=== PATIENT | female | born 1955 | race Caucasian/White ===

== ENCOUNTER → 2017-01-20 | Outpatient (CLI) | payer BC, OTHER ==
[~2017-01-20] VITALS: Ht 162.6 cm; Wt 116.1 kg
[~2017-01-20] MED LIST: ACET-1311 PO; ACET-24 PO; BIOT5000 PO; CLB200 PO; LISI-729 PO; LVNIS40 SQ; MELO7.5T5 PO; MRPSR15 PO; ONDA-170 PO; RXC5 PO; SENN-61 PO; TRAM-10 PO; VITAMIN B 12 PO
[2017-01-20 14:21] VITALS: Ht 162.6 cm; Wt 116.1 kg
--- NOTE | 2017-01-20 14:56 | PAT Medication Instructions ---
Service Date Jan 20, 2017. Current Home Medication List Acetaminophen (Tylenol), 975 MG PO BID PRN for RN Biotin (Biotin/Maximum Strength), 10,000 MCG PO QAM Lisinopril (Zestril), 5 MG PO QAM Meloxicam (Mobic), 15 MG PO QAM Tramadol (Ultram), 150 MG PO Q4H PRN for Pain [Vitamin B 12], 1 TAB PO QAM Medication Instructions For Your Scheduled Surgery - Check with surgeon for instructions: Meloxicam (Mobic), 15 MG PO QAM - Hold the following medications 2 weeks prior to surgery: Biotin (Biotin/Maximum Strength), 10,000 MCG PO QAM - Hold the following medications the morning of surgery: Lisinopril (Zestril), 5 MG PO QAM [Vitamin B 12], 1 TAB PO QAM - Take the following medications the morning of surgery with a sip of water: Tramadol (Ultram), 150 MG PO Q4H PRN for Pain (okay to take up to 4 hours prior to surgery if needed) Acetaminophen (Tylenol), 975 MG PO BID PRN for RN (okay to take up to 4 hours prior to surgery if needed) - Take the following medications as scheduled the night before surgery: Tramadol (Ultram), 150 MG PO Q4H PRN for Pain (if needed) Acetaminophen (Tylenol), 975 MG PO BID PRN for RN (if needed) If you have any questions please call us at [phone] or [phone] or [phone]
--- NOTE | 2017-01-20 15:37 | DIAGNOSTIC IMAGING REPORT ---
CHEST PREADMISSION(PA/LAT) CLINICAL HISTORY: 61 years-old Female presenting with preoperative assessment. TECHNIQUE: Portable upright AP view of the chest was obtained. COMPARISON: None. FINDINGS: Cardiomediastinal silhouette normal. Lungs and pleural spaces clear. Osseous structures normal. Cholecystectomy clips noted. IMPRESSION: 1. No acute cardiopulmonary disease. Electronically signed by: Jamie Quintanilla M.D. 01/20/2017 3:36 PM Dictated Date/Time: 01/20/2017 3:35 PM
[2017-01-20 15:57] LABS: BASO % 0.3 %; BASO ABS # 0.02 K/uL (0-0.2); EOS % 3.6 %; EOS ABS # 0.23 K/uL (0-0.5); IG# 0.01 K/uL (0.00-0.02); LYMPH % 28.9 %; LYMPH ABS # 1.83 K/uL (1.2-3.4); MEAN CELL VOLUME 92.1 fL (80-100); MEAN CORPUSCULAR HEMOGLOBIN 30.7 pg (25-34); MEAN CORPUSCULAR HGB CONC 33.3 g/dl (32-36); MEAN PLATELET VOLUME 11.9 fL (7.4-10.4); MONO % 6.2 %; MONO ABS # 0.39 K/uL (0.11-0.59); NEUT % 60.8 %; NEUT ABS # 3.85 K/uL (1.4-6.5); PLATELET COUNT 183 K/uL (130-400); RED CELL DISTRIBUTION WIDTH CV 12.7 % (11.5-14.5); RED CELL DISTRIBUTION WIDTH SD 42.9 fL (36.4-46.3); WHITE BLOOD COUNT 6.33 K/uL (4.8-10.8)
[2017-01-20 16:05] LABS: CREATININE 0.61 mg/dl (0.60-1.20); POTASSIUM 4.4 mmol/L (3.5-5.1)
[2017-01-20 16:11] LABS: INR 0.9 (0.9-1.1); PTT PATIENT 26.6 SECONDS (21.0-31.0)
== END | disposition home or self-care (01) ==
LOC: C.LAB 08:00 → EDSTATUS 02-11 08:28
PROVIDERS: ATTEND Orthopaedic Surgery
DX: Z01.810 Encounter for preprocedural cardiovascular examination (principal); Z01.811 Encounter for preprocedural respiratory examination; Z01.812 Encounter for preprocedural laboratory examination; M17.0 Bilateral primary osteoarthritis of knee; I49.1 Atrial premature depolarization

== ENCOUNTER → 2017-03-24 | Outpatient (CLI) | payer OTHER ==
[~2017-03-24] MED LIST changes: -ACET-24 PO; -CLB200 PO; -LVNIS40 SQ; -MRPSR15 PO; -ONDA-170 PO; -RXC5 PO; -SENN-61 PO
[2017-03-24 16:48] LABS: BASO % 0.2 %; BASO ABS # 0.01 K/uL (0-0.2); EOS % 4.9 %; EOS ABS # 0.26 K/uL (0-0.5); HEMATOCRIT 40.6 % (37-47); HEMOGLOBIN 13.8 g/dL (12.0-16.0); IG# 0.01 K/uL (0.00-0.02); LYMPH % 38.3 %; LYMPH ABS # 2.04 K/uL (1.2-3.4); MEAN CELL VOLUME 91.9 fL (80-100); MEAN CORPUSCULAR HEMOGLOBIN 31.2 pg (25-34); MEAN PLATELET VOLUME 11.8 fL (7.4-10.4); MONO % 7.5 %; NEUT % 48.9 %; NEUT ABS # 2.61 K/uL (1.4-6.5); PLATELET COUNT 182 K/uL (130-400); RED CELL DISTRIBUTION WIDTH CV 12.7 % (11.5-14.5); RED CELL DISTRIBUTION WIDTH SD 42.9 fL (36.4-46.3); WHITE BLOOD COUNT 5.33 K/uL (4.8-10.8)
[2017-03-24 17:15] LABS: BLOOD UREA NITROGEN 20 mg/dl (7-18); CALCIUM 8.9 mg/dl (8.5-10.1); CARBON DIOXIDE 29 mmol/L (21-32); CREATININE 0.59 mg/dl (0.60-1.20); GLUCOSE 86 mg/dl (70-99); POTASSIUM 3.8 mmol/L (3.5-5.1); SODIUM 139 mmol/L (136-145)
[2017-03-25 07:09] LABS: HEMOGLOBIN A1C 5.1 % (4.5-5.6)
== END | disposition home or self-care (01) ==
LOC: C.LAB 15:19
PROVIDERS: ATTEND Orthopaedic Surgery
DX: M25.561 Pain in right knee (principal)

== ENCOUNTER 2017-04-15 06:37 | Inpatient (IN) | payer OTHER ==
[2017-04-08 10:11] VITALS: BMI 46.0
[~2017-04-15] VITALS: Ht 160 cm; Wt 118.2 kg
[2017-04-15] VITALS (8 sets, daily range): BP systolic 108–208; BP diastolic 66–158; PULSE 75–105; TEMP 36.5–37; O2SAT 94–100; Ht 160 cm; Wt 118.2 kg
[2017-04-15] MEDS: TRANEXAMIC ACID INJ 1,000 MG in SYRINGE 0 ML IV SCH ×2 (06:30→07:55)
[~2017-04-15 06:37] MED LIST changes: +ACETAMINOPHEN 500 MG TAB PO SCH; +CLINDAMYCIN 600 MG/54 ML D5W 54 ML IV SCH; +CeleBREX 200 MG CAP PO SCH; +DEXAMETHASONE 4 MG TAB PO SCH; +FAMOTIDINE 20 MG TAB PO SCH; +GABAPENTIN 300 MG CAP PO SCH; +LACTATED RINGER'S 1000ML 1,000 ML IV SCH; +LACTATED RINGER'S 1000ML 500 ML IV SCH; +METOCLOPRAMIDE HCL 10 MG TAB PO SCH; +ROPIVACAINE 5MG/ML 30 ML 150 MG, BUPIVACAINE 0.5% MPF INJ 30 ML, EpINEphrine HCL INJ 0.... INFIL SCH; -VITAMIN B 12 PO
[2017-04-15] MEDS ORDERED: BUPIVACAINE 0.5 % 5 MG/1 ML PF 10ML VIAL ONE (06:39)
[2017-04-15] MEDS ORDERED: BUPIVACAINE 0.25% 30 ML VIAL ONE (06:39)
[2017-04-15] MEDS ORDERED: POVIDONE-IODINE OP SOLN 30 ML BTL ONE (06:59)
[2017-04-15] MEDS ORDERED: ORTHO JOINT ANESTHETIC ONE (06:59)
[2017-04-15] MEDS ORDERED: BACITRACIN 50000 UNIT VIAL ONE (06:59)
--- NOTE | 2017-04-15 07:03 | History & Physical Bridge Note ---
H&P Re-Evaluation Bridge Note: I have examined the patient, reviewed the History & Physical and in the interval since the performance of the History & Physical I have noted the following changes of clinical significance: No changes noted
[2017-04-15] MEDS ORDERED: MIDAZOLAM HCL 1 MG/ML 2ML VIAL ONE (07:18)
--- NOTE | 2017-04-15 07:28 | History and Physical ---
History & Physical Date Apr 15, 2017. Chief Complaint Patient presents a 59-year-old white female with severe end-stage DJD bilateral knees for bilateral total knee arthroplasty postoperative pain management DVT prophylaxis patient's failed CONSERVATIVE management including physical therapy anti-inflammatories relative rest History of Present Illness The patient is a 61 year old female with complaints of severe end-stage Tri- Chlor milligrams degenerative joint disease failing attempts at conservative management including physical therapy anti-inflammatories relative rest activity modification viscus supplementation x-rays revealed recurrence of end- stage Tri-Chlor metal degenerative joint disease with subchondral sclerosis osteophytes marginal osteophytes bone the bone changes Additional History Hepatic Disease: No Endocrine Disorder: No Kidney Disease: No Hypertension: Yes Heart Disease: No Bleeding Tendencies: No Infectious Diseases: No Allergies Coded Allergies: Erythromycin (Verified Allergy, Intermediate, HIVES, 04/10/17) Minocycline (Verified Allergy, Intermediate, HIVES, 04/10/17) Penicillins (Verified Allergy, Intermediate, HIVES, 04/10/17) Adhesives (Verified Allergy, Unknown, ADHESIVE UNDER EKG ELECTRODES-RASH, WELTS, 04/08/17) Cortisone (Verified Allergy, Unknown, TACHYCARDIA,ELEVATED BP, 04/08/17) Dextromethorphan (Verified Allergy, Unknown, DECREASED HEART RATE,VERY SEDATED, 04/08/17) Diphenhydramine (Verified Allergy, Unknown, DECREASED HEART RATE,VERY SEDATED, 04/08/17) Doxylamine (Verified Allergy, Unknown, DECREASED HEART RATE,VERY SEDATED, 04/08/17) Pseudoephedrine (Verified Allergy, Unknown, DECREASED HEART RATE,VERY SEDATED, 04/08/17) Home Medications Scheduled Biotin (Biotin/Maximum Strength), 10,000 MCG PO QAM Lisinopril (Zestril), 5 MG PO QAM Meloxicam (Mobic), 15 MG PO QAM Scheduled PRN Acetaminophen (Tylenol), 975 MG PO BID PRN for RN Tramadol (Ultram), 150 MG PO Q4H PRN for Pain Physical Examination Skin: warm/dry, no rash ENT: normal ENT inspection, pharynx normal Head: normocephalic, atraumatic Neck: supple, no adenopathy, trachea midline Respiratory/Chest: lungs clear, normal breath sounds, no respiratory distress Cardiovascular: regular rate, rhythm, no edema, no murmur Abdomen / GI: normal bowel sounds, non tender Back: normal inspection Extremities: + pertinent finding (severe end-stage DJD bilateral knees) Diagnosis Patient presents with severe end-stage tricompartmental degenerative joint disease bilateral knees for bilateral total knee arthroplasty patient weighs 264 BMI of 48 Plan of Treatment Bilateral total knee arthroplasty postoperative pain management DVT prophylaxis and box is necessary
[2017-04-15] MEDS ORDERED: KETOROLAC TROMETHAMINE 30 MG/ML VIAL IV. PRN (07:45)
[2017-04-15] MEDS ORDERED: ONDANSETRON INJ 2 MG/ML 2 ML VIAL IV PRN (07:45)
[2017-04-15] MEDS ORDERED: PHENYLEPHRINE 100MCG/ML 5ML SYR IV PRN (07:45)
[2017-04-15] MEDS ORDERED: HYDROmorphone INJ 2 MG/ML SYR/VIAL IV PRN (07:45)
[2017-04-15] MEDS ORDERED: ATROPINE SULFATE 0.1 MG/ML 5ML SYR IV PRN (07:45)
[2017-04-15] MEDS ORDERED: FENTANYL CITRATE INJ 50 MCG/1 ML 2 ML VIAL ONE (08:25)
[2017-04-15] MEDS ORDERED: KETAMINE HCL INJ 50 MG/ML 10 ML VIAL ONE (08:42)
[2017-04-15] MEDS ORDERED: PROPOFOL IV EMULSION 10 MG/ML 20 ML VIAL IV ONE ×2 (09:08→09:25)
[2017-04-15] MEDS ORDERED: PHENYLEPHRINE 100MCG/ML 5ML SYR ONE (09:12)
[2017-04-15] MEDS ORDERED: EpHEDrine SULFATE 50MG/5ML SYR ONE (09:37)
--- NOTE | 2017-04-15 10:21 | [facility] Post Operative Brief Note ---
Immediate Operative Summary Operative Date Apr 15, 2017. Pre-Operative Diagnosis Severe end-stage DJD bilateral knees Post-Operative Diagnosis Severe end-stage DJD bilateral knees Procedure(s) Performed Bilateral total knee arthroplasty doesn't [employer] journey to patient-matched total knee arthroplasty Surgeon Reinaldo System Software Developer Surgeon(s) yanet Estimated Blood Loss 5 mL right 5 mL left Findings Consistent with Post-Op Diagnosis Specimens bone and cartilage Complication(s) none Disposition Disposition: Recovery Room / PACU
--- NOTE | 2017-04-15 10:22 | [facility] Operative Report ---
Operative Report Operative Date Apr 15, 2017. Pre-Operative Diagnosis Severe end-stage DJD bilateral knees Post-Operative Diagnosis Severe end-stage DJD bilateral knees Procedure(s) Performed Bilateral total knee arthroplasty doesn't [employer] journey to patient-matched total knee arthroplasty utilizing right knee size 5 femur 4 tibia 12 spacer 32 patella with a 14 x 100 mm stem left 5 femur 4 tibia 11 Philomena 32 oval patella Surgeon Reinaldo [employer] Home Park Manager Surgeon(s) yanet Estimated Blood Loss 5 mL right 5 mL left Findings patient presents with severe end-stage DJD bilateral knees large muscle con Specimens bone and cartilage Complication(s) none Disposition Recovery Room / PACU Indications Patient presents severe end-stage DJD bilateral knees with the subcutaneous condyle sclerosus marginal osteophytes [id number] changes varus alignment patient presents for total knee arthritis after failing attempts at conservative management including physical therapy viscus supplementation injections anti-inflammatories relative rest activity modification Description of Procedure After proper prepping and draping of the bilateral lower extremities, an anterior midline incision was made over the region of the extensor extensor mechanism of the left knee. After meticulous hemostasis was obtained and maintained in subcutaneous tissues a medial parapatellar incision was made The patella was subluxed lateralward the medial lateral gutter were cleaned from any hypertrophic synovitis and scar tissue of the distal femoral block was placed and the distal femoral osteotomy cut was made subsequently the chamfers anterior and posterior osteotomy cuts were made utilizing the 4-in-1 block the tibia was subsequently subluxed anteriorward medial and ateral meniscal remnants were excised in their entirety remnants of the anterior and posterior cruciate ligaments were excised in their entirety excellent exposure of the proximal tibia was obtained the tibial osteotomy guide was placed on the proximal tibial osteotomy cut was made once again the knee was irrigated with copious amounts of sterile saline solution the patella was subsequently everted lateralward thickened scar tissue around the patella was removed the patella was subsequently cut utilizing a freehand technique and was drilled prepared for final preparation and placement of patella socially flexion-extension gaps were checked and the equal and symmetric trials were placed to the appropriate femoral and tibial trials with poly-spacer being placed for equal flexion and extension gaps and full range of motion including extension to 0 and flexion to 140 the trial components after having been taken to recovery range of motion was subsequently removed meticulous hemostasis was obtained and maintained subsequently a knee block injection of joint cocktail including ropivacaine 0.5 % 150 mg. Bupivacaine 0.5% epinephrine 1-200,030 mL's toradol 30 mg dexamethasone 4 mg ketamine 10 mg clonidine 100 micrograms normal saline solution 30 mg was infiltrated into the soft tissues of the posterior knee medial lateral gutters and periosteal synovium special attention was paid to protect neurovascular structures at all times subsequently trial components having been removed the knee was irrigated with sterile saline solution. debris was removed the proximal tibia was subsequently prepared and was made ready for the placement of the tibial component tibial component was also cemented and tamped into position the femoral component was subsequently placed and cemented in the position the patellar component was subsequently cemented in position because hemostasis once again obtained and maintained wound having been thoroughly irrigated with debridement and debridement lavage was performed as well as a medial parapatellar incision closed with #1 Vicryl in interrupted fashion subcutaneous was closed with #2 Vicryl skin was closed with skin clips Next, an anterior midline incision was made over the region of the extensor extensor mechanism of the right knee. After meticulous hemostasis was obtained and maintained in subcutaneous tissues a medial parapatellar incision was made The patella was subluxed lateralward the medial lateral gutter were cleaned from any hypertrophic synovitis and scar tissue of the distal femoral block was placed and the distal femoral osteotomy cut was made subsequently the chamfers anterior and posterior osteotomy cuts were made utilizing the 4-in-1 block the tibia was subsequently subluxed anteriorward medial and ateral meniscal remnants were excised in their entirety remnants of the anterior and posterior cruciate ligaments were excised in their entirety excellent exposure of the proximal tibia was obtained the tibial osteotomy guide was placed on the proximal tibial osteotomy cut was made once again the knee was irrigated with copious amounts of sterile saline solution the patella was subsequently everted lateralward thickened scar tissue around the patella was removed the patella was subsequently cut utilizing a freehand technique and was drilled prepared for final preparation and placement of patella socially flexion-extension gaps were checked and the equal and symmetric trials were placed to the appropriate femoral and tibial trials with poly-spacer being placed for equal flexion and extension gaps and full range of motion including extension to 0 and flexion to 140 the trial components after having been taken to recovery range of motion was subsequently removed meticulous hemostasis was obtained and maintained subsequently a knee block injection of joint cocktail including ropivacaine 0.5 % 150 mg. Bupivacaine 0.5% epinephrine 1-200,030 mL's toradol 30 mg dexamethasone 4 mg ketamine 10 mg clonidine 100 micrograms normal saline solution 30 mg was infiltrated into the soft tissues of the posterior knee medial lateral gutters and periosteal synovium special attention was paid to protect neurovascular structures at all times subsequently trial components having been removed the knee was irrigated with sterile saline solution. debris was removed the proximal tibia was subsequently prepared and was made ready for the placement of the tibial component tibial component was also cemented and tamped into position the femoral component was subsequently placed and cemented in the position the patellar component was subsequently cemented in position because hemostasis once again obtained and maintained wound having been thoroughly irrigated with debridement and debridement lavage was performed as well as a medial parapatellar incision closed with #1 Vicryl in interrupted fashion subcutaneous was closed with #2 Vicryl skin was closed with skin clips.. PA-C was necessary for prepping and drapping as well as wound closure of deep fascia Sub cutaneous tissue and skin and was necessary for the case. A sterile compressive dressings were placed, patient was taken to recovery in stable condition of report dictated by Reinaldo I attest to the content of the Intraoperative Record and any orders documented therein. Any exceptions are noted below. I attest to the content of the Intraoperative Record and any orders documented therein. Any exceptions are noted below.
[2017-04-15] MEDS ORDERED: TRAMADOL HCL 50 MG TAB PO PRN (11:00)
[2017-04-15] MEDS ORDERED: ALUMINUM/MAGNESIUM/SIMETH (MAALOX MAX) 30 ML UDC PO PRN (11:00)
[2017-04-15] MEDS ORDERED: MAGNESIUM HYDROXIDE SUSP 30 ML UDC PO PRN (11:00)
[2017-04-15] MEDS ORDERED: MoRPHine SULFATE 2 MG/ML CARP IV PRN (11:00)
[2017-04-15] MEDS ORDERED: BISACODYL 10 MG SUPP PR PRN (11:00)
--- NOTE | 2017-04-15 11:16 | Anesthesiology Progress Note ---
Anesthesia Post Op Note Date & Time Apr 15, 2017 at 11:16 Vital Signs Pain Intensity: 0 Vital Signs Past 12 Hours Date Time Temp Pulse Resp B/P (MAP) Pulse Ox O2 Delivery O2 Flow Rate FiO2 04/15/17 11:05 76 18 140/76 99 Nasal Cannula 2 04/15/17 10:57 36.8 83 16 114/76 99 Nasal Cannula 2 04/15/17 07:10 37 105 20 208/158 98 Room Air 147/93 Notes Mental Status: alert / awake / arousable, participated in evaluation Pt Amnestic to Procedure: Yes Nausea / Vomiting: adequately controlled Pain: adequately controlled Airway Patency, RR, SpO2: stable & adequate BP & HR: stable & adequate Hydration State: stable & adequate Anesthetic Complications: no major complications apparent
--- NOTE | 2017-04-15 11:45 | DIAGNOSTIC IMAGING REPORT ---
L KNEE 1 OR 2 VIEWS ROUTINE CLINICAL HISTORY: Osteoarthritis. Arthroplasty. COMPARISON: None FINDINGS: Alignment of the total left knee arthroplasty is anatomic. There is no fracture or unexpected radiopaque foreign body. Skin jacob and drains are present. IMPRESSION: Expected findings following total left knee arthroplasty. Electronically signed by: Jose Antonio Arauz M.D. 04/15/2017 11:44 AM Dictated Date/Time: 04/15/2017 11:44 AM
--- NOTE | 2017-04-15 11:46 | DIAGNOSTIC IMAGING REPORT ---
R KNEE 1 OR 2 VIEWS ROUTINE CLINICAL HISTORY: 61 years-old Female presenting with AP/LATERAL IN PACU RIGHT KNEE. TECHNIQUE: Frontal and lateral views of the right knee were obtained. COMPARISON: None. FINDINGS: Total right knee arthroplasty with patellar resurfacing. No malalignment. No periprosthetic fracture. No hardware complication. Expected intra-articular and soft tissue emphysema within associated surgical drain and overlying skin jacob. IMPRESSION: Expected post surgical changes status post total right knee arthroplasty with patellar resurfacing. Electronically signed by: Jamie Quintanilla M.D. 04/15/2017 11:44 AM Dictated Date/Time: 04/15/2017 11:44 AM
[2017-04-15] MEDS: OXYCODONE HCL IR 5 MG TAB (IMMEDIATE RELEASE) PO PRN ×3 (12:29→22:49)
[2017-04-15] MEDS: D5W AND 1/2NSS + 20MEQ KCL 1,000 ML IV SCH ×2 (13:10→22:47)
[2017-04-15] MEDS: ACETAMINOPHEN 500 MG TAB PO SCH ×2 (13:44→21:37)
[2017-04-15] MEDS: ONDANSETRON INJ 2 MG/ML 2 ML VIAL IV PRN ×2 (14:22→22:50)
[2017-04-15] MEDS: CLINDAMYCIN IV 600 MG in DEXTROSE 5% 50ML 50 ML IV SCH ×2 (16:20→23:19)
[2017-04-15] MEDS: FERROUS GLUCONATE 324 MG TAB PO SCH (18:41)
[2017-04-15] MEDS: DOCUSATE SODIUM 100 MG CAP PO SCH (21:00)
[2017-04-15] MEDS: SENNA 8.6 MG TAB PO SCH (21:00)
[2017-04-15] MEDS: CeleBREX 200 MG CAP PO SCH (21:37)
[2017-04-16 02:48] VITALS: BP 97/65; PULSE 63; TEMP 36.8; O2SAT 98
[2017-04-16] MEDS: OXYCODONE HCL IR 5 MG TAB (IMMEDIATE RELEASE) PO PRN ×4 (04:39→21:47)
[2017-04-16] MEDS: ACETAMINOPHEN 500 MG TAB PO SCH ×3 (05:27→21:46)
[2017-04-16 06:08] LABS: HEMOGLOBIN 10.5 g/dL (12.0-16.0); MEAN CELL VOLUME 91.7 fL (80-100); MEAN CORPUSCULAR HEMOGLOBIN 31.1 pg (25-34); MEAN CORPUSCULAR HGB CONC 33.9 g/dl (32-36); MEAN PLATELET VOLUME 11.7 fL (7.4-10.4); PLATELET COUNT 131 K/uL (130-400); RED CELL DISTRIBUTION WIDTH CV 12.8 % (11.5-14.5); RED CELL DISTRIBUTION WIDTH SD 42.6 fL (36.4-46.3); WHITE BLOOD COUNT 8.72 K/uL (4.8-10.8)
[2017-04-16 06:42] LABS: CALCIUM 7.9 mg/dl (8.5-10.1); CREATININE 0.68 mg/dl (0.60-1.20); POTASSIUM 3.9 mmol/L (3.5-5.1)
[2017-04-16 07:30] VITALS: BP 108/72; PULSE 73; TEMP 37; O2SAT 96
--- NOTE | 2017-04-16 08:08 | Orthopedic Progress Note ---
Orthopedic Progress Note Date of Service Apr 16, 2017. Subjective Post OP Day: 1 Reports: feeling well, Denies: chest pain, SOB, nausea / vomiting, light headedness, calf pain Objective calves soft nontender, N/V intact, capillary refill less than 2 sec., dressing C /D/I, A&O x3, toes mobile, hemovac drainage (175/175 and 200/175 cc per shift) Date Time Temp Pulse Resp B/P (MAP) Pulse Ox O2 Delivery O2 Flow Rate FiO2 04/16/17 07:30 37.0 73 18 108/72 (84) 96 Room Air 04/16/17 02:48 36.8 63 16 97/65 (76) 98 Room Air 04/15/17 23:15 Room Air 04/15/17 22:54 36.8 80 18 108/69 (82) 94 Room Air 04/15/17 19:16 36.8 86 18 115/69 (84) 96 Room Air 04/15/17 15:30 Room Air 04/15/17 14:56 36.6 75 16 139/82 (101) 95 Room Air 04/15/17 13:50 88 18 145/87 (106) 97 Room Air 04/15/17 12:55 90 18 146/66 (92) 99 2.0 04/15/17 12:26 91 18 137/92 (107) 100 2.0 04/15/17 12:00 100 Nasal Cannula 2.0 04/15/17 12:00 36.5 78 16 125/84 (98) 100 Nasal Cannula 2.0 04/15/17 12:00 100 Nasal Cannula 2.0 04/15/17 11:40 77 16 137/68 99 Nasal Cannula 2 04/15/17 11:25 79 14 135/76 100 Nasal Cannula 2 04/15/17 11:15 36.5 75 12 122/76 98 Nasal Cannula 2 04/15/17 11:05 76 18 140/76 99 Nasal Cannula 2 04/15/17 10:57 36.8 83 16 114/76 99 Nasal Cannula 2 Laboratory Results 24 Hours: Test 04/16/17 05:20 Hematocrit 31.0 % Hemoglobin 10.5 g/dL Assessment & Plan Assessment: POD#1 sp BL TKAs Morbid obesity Plan: PT/OT DVT proph- Lovenox Pain management- Massiel, will add MS Contin DC planning- patient wants to go home with home PT, plan on DC Thursday vs Sat. DC dressing/drains in AM.
--- NOTE | 2017-04-16 08:33 | Discharge Instructions ---
Discharge Instructions Date of Service Apr 16, 2017. Admission Reason for Admission: Bilateral Knee Osteoarthritis Discharge Discharge Diagnosis / Problem: sp BL TKAs Discharge Goals Goal(s): Decrease discomfort, Improve function, Increase independence Activity Recommendations Activity Limitations: per Instructions/Follow-up section . Instructions / Follow-Up Instructions / Follow-Up ACTIVITY RECOMMENDATIONS: SELF CARE INSTRUCTIONS AFTER TOTAL KNEE REPLACEMENT A. You may need to continue a physical therapy program after discharge from the hospital. There are several options available to you. Your doctor will assist you in selecting the best one for you. 1. An out-patient facility 2 to 3 times a week for therapy or home therapy. 2. Continue working on all exercises taught to you in the hospital. Your goals should be to increase bending of your knee to 90 degrees and beyond and to fully straighten your knee. B. You may progress at your own pace from walking with a walker or crutches to a cane; then to no assistive devices. C. Make walking a part of your daily routine. Be up as much as comfortable with rest periods throughout the day. Rest with leg elevation is very important. Use the ice wrap frequently for the first 3-4 weeks. D. There are no restrictions on activities. You may ride in a car, shop, participate in salesperson household appliances and all social activities. E. Wear the long elastic stockings (KORTNEY hose) 20 hours a day for 2 weeks after surgery. They can be removed several times a day for laundering and for a bath. F. You may shower, no tub baths until cleared by your doctor. SPECIAL CARE INSTRUCTIONS: VERY IMPORTANT TO READ AND REVIEW A. There are a few signs you need to watch for after you are home. Call [facility] if you notice any of the followin. Increased severe knee pain. Some pain is expected especially when you exercise. 2. Increased swelling in your leg or knee; pain or swelling of the calf muscle in either lower leg. 3. Any fluid drainage from the incision. 4. Shortness of breath or chest pain. B. Please call [facility] at if you have any concerns or questions about your operation or recovery. The doctor or his nurse will return your call promptly. C. You must take antibiotics before dental work, bladder, bowel or other surgery. Your doctor will provide you with a permanent care to carry describing this precaution. IMPORTANT: * HIGH RISK PATIENTS MAY BE PRESCRIBED A STRONGER BLOOD THINNER. THIS WILL BE PROVIDED AT DISCHARGE. LOVENOX 40MG DAILY X 2 WEEKS THEN ASA 81MG TWICE DAILY FOR ANOTHER 2 WEEKS. * CALL IF INCREASED PAIN, REDNESS, DRAINAGE OR FEVER GREATER THAT 101. * WEAR KORTNEY HOSE 20 HOURS PER DAY FOR 2 WEEKS. Prevena- This is a large suction dressing covering your incision. This will help pull any excess drainage from the wound and allow your incision to heal properly. You may shower with this if you can keep the unit outside of the shower. If any bleeding or leakage is noted please call your doctor's office. This will remain on your incision for 7 days and then should be removed. This can be done yourself or by the home nursing staff if applicable. The entire unit is disposable once removed. Once removed, keep incision clean and dry. If redness or drainage is noted, please call your surgeon. FOLLOW UP VISIT: If appointment is not already scheduled: Please call [facility] to make a follow-up appointment for 2 weeks after your surgery at . Current Hospital Diet Patient's current hospital diet: Regular Diet Discharge Diet Recommended Diet: Regular Diet Procedures Procedures Performed: BILATERAL TOTAL KNEE ARTHROPLASTY Pending Studies Studies pending at discharge: no Laboratory Results Hemoglobin A1c Test 03/24/17 15:33 Range/Units Estimated Average Glucose 100 mg/dl Hemoglobin A1c 5.1 4.5-5.6 % Medical Emergencies . Who to Call and When: Medical Emergencies: If at any time you feel your situation is an emergency, please call 911 immediately. . Non-Emergent Contact Non-Emergency issues call your: Surgeon . "Provider Documentation" section prepared by Ericka Champagne. . VTE Core Measure Inpt VTE Proph given/why not?: Enoxaparin (Lovenox)Zarina MASTERS, SCD's [place] Drug Monitoring Program Search Results: patient reviewed within database, no issues identified
[2017-04-16] MEDS: LISINOPRIL 5 MG TAB PO SCH (09:00)
[2017-04-16] MEDS: DOCUSATE SODIUM 100 MG CAP PO SCH ×2 (09:00→20:24)
[2017-04-16] MEDS: FERROUS GLUCONATE 324 MG TAB PO SCH ×3 (09:08→17:22)
[2017-04-16] MEDS: MoRPHine SULFATE CR 15 MG TAB (MS CONTIN) PO SCH ×2 (09:08→20:10)
[2017-04-16] MEDS: CeleBREX 200 MG CAP PO SCH ×2 (09:09→20:24)
[2017-04-16] MEDS: MULTIVITAMIN TAB PO SCH (09:09)
[2017-04-16 09:11] VITALS: BP 108/70; PULSE 89
[2017-04-16] MEDS: D5W AND 1/2NSS + 20MEQ KCL 1,000 ML IV SCH ×2 (09:13→10:04)
--- NOTE | 2017-04-16 09:41 | Anesthesiology Progress Note ---
Anesthesia Post Op Note Date & Time Apr 16, 2017 at 09:41 Vital Signs Vital Signs Past 12 Hours Date Time Temp Pulse Resp B/P (MAP) Pulse Ox O2 Delivery O2 Flow Rate FiO2 04/16/17 09:11 89 108/70 (83) 04/16/17 07:30 37.0 73 18 108/72 (84) 96 Room Air 04/16/17 07:30 Room Air 04/16/17 02:48 36.8 63 16 97/65 (76) 98 Room Air 04/15/17 23:15 Room Air 04/15/17 22:54 36.8 80 18 108/69 (82) 94 Room Air Notes Mental Status: alert / awake / arousable, participated in evaluation Pt Amnestic to Procedure: Yes Nausea / Vomiting: adequately controlled Pain: adequately controlled Airway Patency, RR, SpO2: stable & adequate BP & HR: stable & adequate Hydration State: stable & adequate Neuraxial Anesthesia: sensory block resolved Anesthetic Complications: no major complications apparent
[2017-04-16] MEDS: ENOXAPARIN 40 MG/0.4 ML SYR SQ SCH (10:03)
[2017-04-16 11:00] VITALS: BP 146/74
[2017-04-16] MEDS: ONDANSETRON INJ 2 MG/ML 2 ML VIAL IV PRN ×2 (11:55→17:54)
[2017-04-16 15:40] VITALS: BP 114/70; PULSE 83; TEMP 37.1; O2SAT 96
[2017-04-16] MEDS: SENNA 8.6 MG TAB PO SCH (20:24)
[2017-04-16 23:09] VITALS: BP 102/69; PULSE 75; TEMP 36.9; O2SAT 95
[2017-04-17] MEDS: ACETAMINOPHEN 500 MG TAB PO SCH ×3 (05:41→21:33)
[2017-04-17] MEDS: OXYCODONE HCL IR 5 MG TAB (IMMEDIATE RELEASE) PO PRN ×4 (05:41→20:18)
--- NOTE | 2017-04-17 08:29 | Orthopedic Progress Note ---
Orthopedic Progress Note Date of Service Apr 17, 2017. Subjective Post OP Day: 2 Reports: feeling well, Denies: chest pain, SOB, nausea / vomiting, light headedness, calf pain Objective calves soft nontender, N/V intact, capillary refill less than 2 sec., dressing C /D/I (PREVENA), A&O x3, toes mobile Date Time Temp Pulse Resp B/P (MAP) Pulse Ox O2 Delivery O2 Flow Rate FiO2 04/16/17 23:50 Room Air 04/16/17 23:09 36.9 75 16 102/69 (80) 95 Room Air 04/16/17 16:00 Room Air 04/16/17 15:40 37.1 83 20 114/70 (85) 96 Room Air 04/16/17 09:11 89 108/70 (83) Assessment & Plan Assessment: POD#2 sp BL TKAs Morbid obesity Plan: PT/OT DVT proph- Lovenox Pain management- Massiel, will add MS Contin NAY planning- patient wants to go home with home PT, plan on DC Thursday vs Sat PENDING PT PROGRESS TODAY NAY SAWANT
[2017-04-17 08:32] VITALS: BP 112/76; PULSE 84; TEMP 36.9; O2SAT 96
[2017-04-17] MEDS ORDERED: SENN-61 PO (08:32)
[2017-04-17] MEDS ORDERED: ONDA8TAB6 PO (08:32)
[2017-04-17] MEDS ORDERED: CLB200 PO (08:32)
[2017-04-17] MEDS ORDERED: MRPSR15 PO (08:32)
[2017-04-17] MEDS ORDERED: RXC5 PO (08:32)
[2017-04-17] MEDS ORDERED: LVNIS40 SQ (08:32)
[2017-04-17] MEDS ORDERED: ACET-24 PO (08:32)
[2017-04-17] MEDS: MoRPHine SULFATE CR 15 MG TAB (MS CONTIN) PO SCH ×2 (08:34→20:17)
[2017-04-17] MEDS: FERROUS GLUCONATE 324 MG TAB PO SCH ×3 (08:35→17:43)
[2017-04-17] MEDS: CeleBREX 200 MG CAP PO SCH ×2 (08:35→21:32)
[2017-04-17] MEDS: DOCUSATE SODIUM 100 MG CAP PO SCH ×2 (08:35→21:32)
[2017-04-17] MEDS: MULTIVITAMIN TAB PO SCH (08:35)
[2017-04-17] MEDS: LISINOPRIL 5 MG TAB PO SCH (08:36)
[2017-04-17] MEDS: ENOXAPARIN 40 MG/0.4 ML SYR SQ SCH (08:36)
[2017-04-17 10:03] VITALS: O2SAT 96
[2017-04-17 15:04] VITALS: BP 100/68; PULSE 96; TEMP 37.2; O2SAT 98
[2017-04-17] MEDS: SENNA 8.6 MG TAB PO SCH (21:32)
[2017-04-17 23:05] VITALS: BP 113/74; PULSE 90; TEMP 36.2; O2SAT 95
[2017-04-18] MEDS: OXYCODONE HCL IR 5 MG TAB (IMMEDIATE RELEASE) PO PRN ×2 (00:31→08:13)
[2017-04-18] MEDS: ACETAMINOPHEN 500 MG TAB PO SCH (06:04)
[2017-04-18 07:11] VITALS: BP 134/80; PULSE 99; TEMP 36.8; O2SAT 98
--- NOTE | 2017-04-18 08:03 | Orthopedic Progress Note ---
Orthopedic Progress Note Date of Service Apr 18, 2017. Subjective Post OP Day: 3 Reports: feeling well, Denies: chest pain, SOB, nausea / vomiting, light headedness, calf pain Additional Notes: Feeling better this am, "ready to go." Objective calves soft nontender, N/V intact, capillary refill less than 2 sec., dressing C /D/I (prevena), A&O x3, toes mobile Date Time Temp Pulse Resp B/P (MAP) Pulse Ox O2 Delivery O2 Flow Rate FiO2 04/18/17 07:11 36.8 99 16 134/80 (98) 98 Room Air 04/17/17 23:30 Room Air 04/17/17 23:05 36.2 90 18 113/74 (87) 95 Room Air 04/17/17 15:20 Room Air 04/17/17 15:04 37.2 96 18 100/68 (79) 98 Room Air 04/17/17 10:03 96 Room Air 04/17/17 08:32 36.9 84 14 112/76 (88) 96 Room Air Assessment & Plan Assessment: POD#3 sp BL TKAs Morbid obesity Plan: PT/OT DVT proph- Lovenox Pain management- Massiel, will add MS Contin DC planning- patient wants to go home with home PT, plan on DC Sat DC HOME TODAY AFTER PT SESSION.
[2017-04-18] MEDS: MULTIVITAMIN TAB PO SCH (08:13)
[2017-04-18] MEDS: FERROUS GLUCONATE 324 MG TAB PO SCH (08:13)
[2017-04-18] MEDS: CeleBREX 200 MG CAP PO SCH (08:13)
[2017-04-18] MEDS: LISINOPRIL 5 MG TAB PO SCH (08:13)
[2017-04-18] MEDS: MoRPHine SULFATE CR 15 MG TAB (MS CONTIN) PO SCH (08:13)
[2017-04-18] MEDS: DOCUSATE SODIUM 100 MG CAP PO SCH (08:14)
[2017-04-18] MEDS: ENOXAPARIN 40 MG/0.4 ML SYR SQ SCH (08:15)
[2017-04-18 09:31] VITALS: BP 134/80; PULSE 99; TEMP 36.8; O2SAT 98
--- NOTE | 2017-04-21 12:48 | DISCHARGE SUMMARY ---
DISCHARGE DIAGNOSIS: Degenerative joint disease, bilateral knees. SECONDARY DIAGNOSIS: Hypertension. CONSULTS: None. COMPLICATIONS: None. PROCEDURES: Bilateral total knee arthroplasty performed by Dr. Najera on 04/15/2017. BRIEF HISTORY: As dictated in history and physical. HOSPITAL SUMMARY: The patient was admitted on the above date and had the above-noted surgery performed which she tolerated well. On the first postoperative day, she was feeling well and had no complaints. Calves were soft, nontender, neurovascularly intact. Dressings clean, dry and intact. Toes were mobile. Vital signs were stable and she was afebrile. Hemoglobin was 10.5 and she was started on physical therapy protocol and continued on DVT prophylaxis and pain management. By her second postoperative day, she was feeling well and had no complaints. Calves were soft and nontender, neurovascularly intact. Dressings clean, dry and intact. Toes were mobile. She was progressing slowly with physical therapy and was continued on her PT protocol. By 04/18/2017, she was feeling much better and felt ready to go home. Vital signs were stable. She was afebrile. Dressings clean were clean, dry and intact. Toes were mobile. Calves were soft and nontender. She was progressing in physical therapy and ambulated close to 200 feet. She had 71 degrees of flexion of the right knee and 83 degrees of flexion of the left knee and was otherwise remaining stable and it was felt she could be discharged to home on 04/18/2017. For further review, please see chart. LABORATORY AND X-RAY DATA: As per chart. DISCHARGE INSTRUCTIONS: The patient was discharged to home in satisfactory condition on 04/18/2017. DIET: Regular. ACTIVITY: Weightbearing as tolerated on both lower extremities. Follow TK instruction sheets and special care instructions as noted. FOLLOWUP: Follow up with Dr. Najera in 2 weeks. The patient to call for appointment if one has not been made for you. DISCHARGE MEDICATIONS: Acetaminophen 1000 mg p.o. q. 8 hours, Celebrex 200 mg p.o. b.i.d., Lovenox 40 mg subQ q. 24 hours for 12 days, MS Contin 15 mg p.o. q. 12 hours, Zofran 8 mg p.o. q. 8 hours p.r.n., oxycodone 5-10 mg p.o. q. 4 hours p.r.n., senna 17.2 mg p.o. at bedtime for 14 days. Resume home meds including biotin, lisinopril and tramadol. Stop taking original dose of acetaminophen and stop taking Meloxicam.
== END 2017-04-18 11:20 | disposition home health service (06) | DRG 462 ==
LOC: C.ACU 06:37 → ENRESERV 11:44 → C.3E 11:58
PROVIDERS: ADMIT Orthopaedic Surgery; ATTEND Orthopaedic Surgery
PROC: 0SRC0J9 Replacement of Right Knee Joint with Synthetic Substitute, Cemented, Open Approach (ICD-10-PCS; principal; 2017-04-15 08:15)
PROC: 0SRD0J9 Replacement of Left Knee Joint with Synthetic Substitute, Cemented, Open Approach (ICD-10-PCS; principal; 2017-04-15 08:15)
DX: M17.0 Bilateral primary osteoarthritis of knee (principal); Z68.42 Body mass index [BMI] 45.0-49.9, adult; E66.01 Morbid (severe) obesity due to excess calories; Z79.899 Other long term (current) drug therapy; Z88.1 Allergy status to other antibiotic agents; Z88.0 Allergy status to penicillin

== ENCOUNTER 2019-03-25 11:19 | Observation (INO) ==
--- NOTE | 2019-03-11 13:09 | Anesthesiology Consultation ---
Date of Service March 11, 2019 Assessment & Plan (1) Encounter for pre-operative examination: Chart Review Chart Review: Acceptable Risk for Surgery and Patient seen in Pre Admission Testing Teaching & Discussion Pre-Anesthesia Teaching/Discussion Notes: Instructed NPO after midnight before surgery,except medications with 15 cc of water. Medication instructions provided according to the PAT guidelines. History Surgery Operation Date: 03/25/19 11:40 Proposed Procedures p Total Laparoscopic Hysterectomy, Bilateral Salpingo-Oophorectomy and Cystoscopy - Dalila Driscoll Height/Weight Height: 5 ft 4 in Weight: 123.8 kg Allergies Allergy/AdvReac Type Severity Reaction Status Date / Time erythromycin base Allergy Intermediate HIVES Verified 03/11/19 12:53 minocycline Allergy Intermediate HIVES Verified 03/11/19 12:53 Penicillins Allergy Intermediate HIVES Verified 03/11/19 12:53 adhesive Allergy Unknown ADHESIVE Verified 03/11/19 12:53 UNDER EKG ELECTRODES-RASH,WELTS cortisone Allergy Unknown TACHYCARDIA,ELEVATED Verified 03/11/19 12:53 BP dextromethorphan Allergy Unknown DECREASED Verified 03/11/19 12:53 HEART RATE,VERY SEDATED diphenhydramine Allergy Unknown DECREASED Verified 03/11/19 12:53 HEART RATE,VERY SEDATED doxylamine Allergy Unknown DECREASED Verified 03/11/19 12:53 HEART RATE,VERY SEDATED pseudoephedrine Allergy Unknown DECREASED Verified 03/11/19 12:53 HEART RATE,VERY SEDATED Medications Home Medications Medication Instructions Recorded Confirmed Last Taken acetaminophen [Tylenol] 325 mg PO Q6H PRN 03/11/19 03/11/19 Unknown biotin 1 mg PO QAM 03/11/19 03/11/19 Unknown ibuprofen 200 mg PO Q6H PRN 03/11/19 03/11/19 Unknown lisinopril 10 mg PO QAM 03/11/19 03/11/19 Unknown meloxicam 15 mg PO QAM 03/11/19 03/11/19 Unknown Past Medical History Medical History (Updated 03/11/19 @ 13:19 by Yola Anderson) Asthma stable GERD (gastroesophageal reflux disease) controlled History of blood transfusion 2/2 ectopic Hypertension Morbid obesity Osteoarthritis Exercise / Class Metabolic Activity II 4-5 Yardwork/Stairs/Walk up hill Past Surgical History Surgical History History of removal of skin mole big toe History of total left knee replacement History of total right knee replacement Hx laparoscopic cholecystectomy Hx of appendectomy Hx of section x2 Hx of ectopic Hx of foot surgery bone spur removed from right foot Past Anesthesia History No Hx of Anesthesia Complications and No Family Hx of Anesthesia Complications History of PONV No Hx of PONV and No Hx of Motion Sickness Social History Smoking Status: Never smoker Do You Dip or Chew Tobacco: No Hx Alcohol Use: No Hx Substance Use: No substance use type: does not use Review of Systems Reflux controlled. Patient denies chest pain, shortness of breath, dyspnea on exertion, cough, wheezing, palpitations. Physical Exam Vital Signs Last Vital Signs Temp 37.2 C 03/11/19 12:59 Pulse 85 03/11/19 12:59 Resp 20 03/11/19 12:59 BP 128/83 03/11/19 12:59 Pulse Ox 96 03/11/19 12:59 PHYSICAL Mildly decreased cervical extension (chronic per patient) Full TMJ range of motion. TMD 3.5 finger breaths Mallampati Score 2 Dentition: missing side tooth Lungs: clear throughout to auscultation Cardiac: regular rate and rhythm, no murmurs noted Spine: normal Carotid arteries: negative bruit Extremities: no edema Testing Laboratory Results 03/11/19 13:20 03/11/19 13:41 Blood Type A Positive 03/11/19 13:20 Antibody Screen NEGATIVE 03/11/19 13:20 Electrocardiogram Date: 03/11/19 SR with PAC's at 76bpm. Otherwise normal ECG. No significant change compared to 01/20/17.
--- NOTE | 2019-03-11 13:09 | PAT Medication Instructions ---
Medication Instructions Date of Service March 11, 2019 Home Medications acetaminophen [Tylenol] 325 mg PO Q6H PRN 03/11/19 [History Confirmed 03/11/19] biotin 1 mg PO QAM 03/11/19 [History Confirmed 03/11/19] ibuprofen 200 mg PO Q6H PRN 03/11/19 [History Confirmed 03/11/19] lisinopril 10 mg PO QAM 03/11/19 [History Confirmed 03/11/19] meloxicam 15 mg PO QAM 03/11/19 [History Confirmed 03/11/19] ASK your surgeon for instructions meloxicam 15 mg PO QAM 03/11/19 [History Confirmed 03/11/19] ibuprofen 200 mg PO Q6H PRN 03/11/19 [History Confirmed 03/11/19] STOP taking 2 weeks before surgery (or as soon as possible if surgery is within 2 weeks) biotin 1 mg PO QAM 03/11/19 [History Confirmed 03/11/19] DO NOT take the morning of surgery lisinopril 10 mg PO QAM 03/11/19 [History Confirmed 03/11/19] Take morning of surgery With a small sip of water, OTHERWISE NOTHING TO EAT OR DRINK AFTER MIDNIGHT: acetaminophen [Tylenol] 325 mg PO Q6H PRN (okay to take up to 4 hours prior to surgery if needed) Other Notes If you have any questions please call us at [phone] or [phone] or [phone] or [phone]
[2019-03-11 13:32] LABS: Basophils # (auto) 0.01 K/uL (0-0.2); Basophils % (auto) 0.2 %; Eosinophils % (auto) 4.2 %; Hematocrit (blood only) 40.8 % (37-47); Hemoglobin 13.6 g/dL (12.0-16.0); Immature Granulocytes # (auto) 0.01 K/uL (0.00-0.02); Immature Granulocytes % (auto) 0.2 %; Lymphocytes # (auto) 1.39 K/uL (1.2-3.4); Lymphocytes % (auto) 29.3 %; Mean Corpuscular Hemoglobin 31.1 pg (25-34); Mean Corpuscular Hgb Conc 33.3 g/dL (32-36); Mean Corpuscular Volume 93.4 fL (80-100); Mean Platelet Volume 11.3 fL (7.4-10.4); Monocytes # (auto) 0.42 K/uL (0.11-0.59); Monocytes % (auto) 8.9 %; Neutrophils # (auto) 2.71 K/uL (1.4-6.5); Neutrophils % (auto) 57.2 %; Platelet Count 182 K/uL (130-400); RDW Coefficient of Variation 12.6 % (11.5-14.5); RDW Standard Deviation 42.7 fL (36.4-46.3); Red Blood Count 4.37 M/uL (4.2-5.4); White Blood Count 4.74 K/uL (4.8-10.8)
[2019-03-11 14:53] LABS: BUN Creatinine Ratio 23.1 (10-20); Creatinine Clr Calc Pharmacy 110.3 ml/min; Est GFR (African American) 107.7; Est GFR (Non-African American) 92.9; Potassium 4.3 mmol/L (3.5-5.1)
[~2019-03-25 11:19] MED LIST changes: -ACET-1311 PO; -ACETAMINOPHEN 500 MG TAB PO SCH; -BIOT5000 PO; +CEFAZOLIN 3000MG 65 ML IV SCH; -CLINDAMYCIN 600 MG/54 ML D5W 54 ML IV SCH; -CeleBREX 200 MG CAP PO SCH; -DEXAMETHASONE 4 MG TAB PO SCH; +DEXAMETHASONE SOD INJ 4 MG/ML VIAL ONE; -FAMOTIDINE 20 MG TAB PO SCH; -GABAPENTIN 300 MG CAP PO SCH; +GLYCOPYRROLATE 0.2 MG/ML VIAL ONE; +LACTATED RINGER'S 1,000 ML IV SCH; -LACTATED RINGER'S 1000ML 1,000 ML IV SCH; -LACTATED RINGER'S 1000ML 500 ML IV SCH; +LIDOCAINE HCL 2% 2 ML VIAL/AMP(20MG/ML) INFIL ONE; -LISI-729 PO; +LR 15ML/HR IV SCH; -MELO7.5T5 PO; -METOCLOPRAMIDE HCL 10 MG TAB PO SCH; +MIDAZOLAM HCL 1 MG/ML 2ML VIAL ONE; +NEOSTIGMINE METHYLSULFATE 5 MG/5 ML SYR ONE; +ONDANSETRON INJ 2 MG/ML 2 ML VIAL ONE; +PROPOFOL IV EMULSION 10 MG/ML 20 ML VIAL IV ONE; +ROCURONIUM BROMIDE 10 MG/ML 5 ML VIAL ONE; -ROPIVACAINE 5MG/ML 30 ML 150 MG, BUPIVACAINE 0.5% MPF INJ 30 ML, EpINEphrine HCL INJ 0.... INFIL SCH; +SODIUM CHLORIDE 0.9% 1000ML 1,000 ML IV SCH; -TRAM-10 PO; +fentaNYL citrate 100 MCG/2 ML VIAL ONE
[2019-03-25] MEDS ORDERED: CEFAZOLIN 3000MG/72.5 ML BAG IV ONE (11:55)
--- NOTE | 2019-03-25 11:55 | History & Physical Bridge Note ---
Date of Service March 25, 2019 History & Physical Bridge Note I have examined the patient, reviewed the History & Physical and in the interval since the performance of the History & Physical I have noted the following changes of clinical significance: no changes noted
[2019-03-25] MEDS ORDERED: ALBUTEROL 0.083% NEBU SOLN 3 ML VIAL INH PRN (11:58)
[2019-03-25] MEDS ORDERED: PROMETHAZINE HCL 12.5 MG in SODIUM CHLORIDE 0.9% 50 ML IV PRN ×2 (11:58→19:39)
[2019-03-25] MEDS ORDERED: ATROPINE SULFATE 0.1 MG/ML 10ML SYR IV PRN (11:58)
[2019-03-25] MEDS ORDERED: ONDANSETRON INJ 2 MG/ML 2 ML VIAL IV PRN ×3 (11:58→19:39)
[2019-03-25] MEDS ORDERED: KETOROLAC 30 MG/ML VIAL IV PRN ×3 (11:58→19:39)
[2019-03-25] MEDS ORDERED: LABETALOL HCL IV 5 MG/ML 20ML IV PRN (11:58)
[2019-03-25] MEDS ORDERED: BUPIVACAINE 0.5 % 5 MG/1 ML MPF 30ML VIAL ONE (12:13)
[2019-03-25] MEDS ORDERED: METHYLENE BLUE 0.5% 10 ML VIAL ONE (12:14)
[2019-03-25] MEDS ORDERED: ROCURONIUM BROMIDE 10 MG/ML 5 ML VIAL ONE (12:52)
[2019-03-25] MEDS ORDERED: TISSEEL FIBRIN SEALANT 10ML TOP ONE (12:56)
[2019-03-25] MEDS ORDERED: fentaNYL citrate 100 MCG/2 ML VIAL ONE ×3 (13:19→14:46)
[2019-03-25] MEDS ORDERED: PROPOFOL IV EMULSION 10 MG/ML 20 ML VIAL IV ONE (13:33)
[2019-03-25] MEDS ORDERED: LABETALOL HCL IV 5 MG/ML 20ML IV ONE (13:33)
--- NOTE | 2019-03-25 14:56 | Post Operative Brief Note ---
Immediate Post Op Note v1 Date of Surgery March 25, 2019 Pre & Post Diagnosis Operation Date: 03/25/19 12:40 Pre-Op Diagnosis: Persistent Post-Menopausal Bleeding Post-Op Diagnosis: Persistent Post-Menopausal Bleeding I identified the patient and participated in the time-out.: Yes Procedure Operation Date: 03/25/19 12:40 Actual Procedures p Total Laparoscopic Hysterectomy, Bilateral Salpingo-Oophorectomy and Cystoscopy(Not Applicable) - Dalila Driscoll Surgeon Dalila Driscoll Integration Director Kaila Jimenez PA-C Estimated Blood Loss 50 Findings Consistent with Post-Op Diagnosis Drains James Catheter
[2019-03-25] MEDS: HYDROmorphone INJ 1 MG/ML SYRINGE IV PRN ×8 (14:57→15:32)
[2019-03-25] MEDS ORDERED: METOCLOPRAMIDE HCL INJ 5 MG/ML 2 ML VIAL IV PRN (14:57)
--- NOTE | 2019-03-25 15:14 | Operative Report ---
Post Operative Report Pre & Post Diagnosis Operation Date: 03/25/19 12:40 Pre-Op Diagnosis: Persistent Post-Menopausal Bleeding Post-Op Diagnosis: Persistent Post-Menopausal Bleeding I identified the patient and participated in the time-out.: Yes Procedure Operation Date: 03/25/19 12:40 Actual Procedures p Total Laparoscopic Hysterectomy, Bilateral Salpingo-Oophorectomy and Cystoscopy(Not Applicable) - Dalila Driscoll Surgeon Dalila Driscoll Neck Band Operator Kaila Jimenez PA-C Estimated Blood Loss 50 Findings See Below 1. 8 cm multi-fibroid uterus 2. 3-4 cm right ovarian cyst 3. Normal appearing left ovary 4. Lower uterine segment scar to the bladder 5. Posterior cul-de-sac without disease 6. On cystoscopy, normal appearing bladder dome which was free of lesions and suture 7. Brisk bilateral efflux of urine by ureteral orifices Fluids See Anesthesia Report Specimens Uterus, cervix, bilateral fallopian tubes and cervix Drains Nagel catheter removed prior to the end of the case. Anesthesia Type General Complications none Indications 63 yo with persistent post-menopausal bleeding desiring definitive surgical management via hysterectomy. Description of Procedure Under GA in the dorsal lithotomy position, the patient was prepped and drapped in the usual sterile fashion. Beginning at the vagina, a nagel catheter was inserted under sterile conditions and left in situ for the remainder of the case. A weighted speculum was then placed in the vagina and with the help of a right angle retractor the cervix was visualized and grasped anteriorly with a single tooth tenaculum. The uterus was sounded to 8 cm with a uterine sound. The cervical os was dilated. An [employer] uterine manipulator with a metal cup was inserted. The weighted speculum was then removed. Attention was then turned to the abdomen. 0.5% marcaine solution was used for infiltration of all port sites. Beginning i n the subumbilical area, the skin was first infiltrated with ~ 2 cc of the marcaine solution, then a 5 mm incision was made through the skin with a #11 blade. Direct entry with a 5 mm trocar, sleeve, and laparoscope was made into the peritoneal cavity. The opening pressure was < 8 mmHg. The peritoneal cavity was insufflated with CO2 gas to a maximum pressure of 20 mmHg. Examination of the peritoneal cavity revealed no signs of injury from entry and normal anatomical structures. The patient was then placed in steep Trendelenburg and three more 5 mm trocars were placed, one on the right and two on the left, in the standard technique, taking care to avoid the epigastric vessels. All trocars were placed under direct visualization with no inadvertent damage to underlying structures. The uterus was upheld from below and revealed a multi-fibroid uterus and normal tubes, right ovary with a cyst and normal appearing left ovary. Beginning on the left side, the Infundibular ligament was identified by lifting the tube towards the anterior wall of the abdomen. The ureter was confirmed along the pelvic side wall and peristalsis was noted. The ELZA Harmonic device was then used to clamp and ligate the IP ligament in three sequential bites with ligation. The IP was then cut middistance, again being sure to be clear of the ureter. Following this, the broad ligament was sequentially grasped, ligated, and cut in the direction of the round ligament hugging next to the fallopian tube. The round ligament was then ligated and cut, followed by the uteroovarian ligament. Following this, the anterior leaf of the broad ligament was then taken down on the left side, dissecting down towards the peritoneal reflection at the base of the bladder and adjacent to the cervix. The same process was then r epeated on the right side such that both sides met and the anterior leaflet had been appropriately skeletonized. Once the bladder was appropriately dissected free from the lower anterior uterine segment and the tissues skeletonized, the uterine arteries were bilaterally clamped and ligated. Pedicles were checked and hemostatic. At the level of the metal cup of the uterine manipulator, the vaginal vault was incised circumferentially with a ELZA Harmonic. The uterus, cervix, fallopian tubes and ovaries were delivered through the vagina and sent to pathology. A vaginal occluder was then placed into the vagina to form a pneumatic seal and all the pedicles as well as the cuff edges were examined. The vaginal vault was then closed with a V-Loc barbed stitch being sure to avoid the bladder lateral pedicles. Following vault closure, an inspection of all areas was made to ensure hemostasis. Tisseal was then applied to the adnexal regions and vaginal cuff. All ports were removed under direct visualization and hemostasis noted. All the incision sites were then closed with 4-0 monocryl sutures in a subcuticular fashion and dermabond. The nagel catheter and vaginal occluder was removed without difficulty. Cytoscopy was then performed and revealed a normal bladder dome. Bladder was free of lesions or suture. Brisk bilateral efflux of urine by the ureteral orifices. The bladder was drained and the cystoscope was removed. At the end of the procedure, all sponges, instruments, and sharps were counted and correct. Estimated blood loss was 50 ml. The patient was taken to recovery in stable condition. I attest to the content of the Intraoperative Record and any orders documented therein. Any exceptions are noted below.
--- NOTE | 2019-03-25 15:40 | Anesthesiology Progress Note ---
Date of Service March 25, 2019 Anesthesia Post Procedure Vital Signs Vital Signs: Temp Pulse Pulse Resp BP BP Pulse Ox 03/25/19 15:30 50 L 20 150/64 H 100 03/25/19 15:20 51 L 23 146/74 H 100 03/25/19 15:10 57 L 24 161/77 H 100 03/25/19 15:00 52 L 15 161/88 H 100 03/25/19 14:51 36.0 C L 58 L 14 178/92 H 100 03/25/19 11:40 36.4 C L 81 20 160/102 H 99 Pain Intensity Abdomen: Pain Intensity: 5 Transfer of Care Handoff Completed per policy Notes Mental Status: alert / awake / arousable Patient Amnestic to Procedure: Yes Nausea / Vomiting: adequately controlled Pain: adequately controlled Airway Patency, RR, SpO2: stable & adequate BP & HR: stable & adequate Hydration State: stable & adequate Anesthetic Complications: no major complications apparent
[2019-03-25] MEDS: OXYCODONE/ACETAMINOPHEN 5mg/325mg TAB PO PRN ×2 (16:47→20:28)
[2019-03-25] MEDS ORDERED: SIMETHICONE 80 MG CHEW PO PRN (19:39)
[2019-03-25] MEDS ORDERED: ACETAMINOPHEN 325 MG TAB PO PRN ×2 (19:39→19:51)
[2019-03-25] MEDS ORDERED: OXYCODONE/ACETAMINOPHEN 5mg/325mg TAB PO PRN (19:39)
[2019-03-25] MEDS ORDERED: IBUPROFEN 200 MG TAB PO PRN (19:50)
[2019-03-25] MEDS: DOCUSATE SODIUM 100 MG CAP PO SCH (20:31)
[2019-03-25] MEDS: IBUPROFEN 600 MG TAB PO PRN (23:48)
[2019-03-26] MEDS: OXYCODONE/ACETAMINOPHEN 5mg/325mg TAB PO PRN (00:51)
[2019-03-26] MEDS: IBUPROFEN 600 MG TAB PO PRN (04:18)
[2019-03-26] MEDS ORDERED: LACTATED RINGER'S 500 ML IV ONE (04:33)
[2019-03-26 04:54] LABS: Hematocrit (blood only) 36.8 % (37-47); Hemoglobin 12.4 g/dL (12.0-16.0); Mean Corpuscular Hgb Conc 33.7 g/dL (32-36); Mean Platelet Volume 11.5 fL (7.4-10.4); Platelet Count 168 K/uL (130-400); RDW Coefficient of Variation 12.7 % (11.5-14.5); RDW Standard Deviation 43.1 fL (36.4-46.3); White Blood Count 9.88 K/uL (4.8-10.8)
[2019-03-26] MEDS: DOCUSATE SODIUM 100 MG CAP PO SCH (08:33)
[2019-03-26] MEDS ORDERED: MELOXICAM 7.5 MG TAB PO SCH (09:00)
[2019-03-26] MEDS ORDERED: lisinopriL 10 MG TAB PO SCH (09:00)
[2019-03-26] MEDS ORDERED: NON-FORMULARY MEDICATION (Biotin 1 MG) PO SCH (09:00)
--- NOTE | 2019-03-26 09:41 | Obstetrical Progress Note ---
Date of Service March 26, 2019 Subjective Patient is seen and examined. She feels well, no complaints. Pain is under control with oral meds. Ambulating without dizziness Voiding without difficulty Tolerating regular diet with out N&V Flatus negative Bleeding is minimal No fever/ chills/ CP/ SOB/ N&V/ Leg pain Vital Signs Temp Pulse Pulse Pulse Pulse Resp BP 03/26/19 07:25 37.5 C 87 18 03/26/19 04:00 37.8 C H 101 H 99 H 18 91/41 L 03/26/19 02:00 37.6 C H 03/26/19 00:50 37.8 C H 93 H 18 03/25/19 23:30 03/25/19 21:55 37.3 C 94 H 18 03/25/19 20:55 99 H 18 03/25/19 19:55 86 20 03/25/19 19:25 77 22 03/25/19 18:55 36.5 C 68 20 03/25/19 17:20 36.6 C 69 18 03/25/19 17:08 36.5 C 68 18 03/25/19 16:24 53 L 18 03/25/19 16:03 36.2 C L 55 L 18 03/25/19 15:50 51 L 16 03/25/19 15:40 36.7 C 55 L 22 03/25/19 15:30 50 L 20 03/25/19 15:20 51 L 23 03/25/19 15:10 57 L 24 03/25/19 15:00 52 L 15 03/25/19 14:51 36.0 C L 58 L 14 03/25/19 11:40 36.4 C L 81 20 160/102 H BP Pulse Ox Pulse Ox 03/26/19 07:25 126/69 94 94 03/26/19 04:00 118/70 95 03/26/19 02:00 03/26/19 00:50 133/71 93 03/25/19 23:30 93 03/25/19 21:55 149/74 H 91 03/25/19 20:55 142/70 H 91 03/25/19 19:55 146/76 H 94 03/25/19 19:25 141/76 H 96 03/25/19 18:55 151/86 H 98 98 03/25/19 17:20 121/64 95 03/25/19 17:08 129/65 95 03/25/19 16:24 145/65 H 93 03/25/19 16:03 148/51 H 99 03/25/19 15:50 159/71 H 96 03/25/19 15:40 148/59 H 100 03/25/19 15:30 150/64 H 100 03/25/19 15:20 146/74 H 100 03/25/19 15:10 161/77 H 100 03/25/19 15:00 161/88 H 100 03/25/19 14:51 178/92 H 100 03/25/19 11:40 99 Intake and Output 03/25/19 03/26/19 03/26/19 22:59 06:59 14:59 Intake Total 1890.5 / 2140.5 250 / 2140.5 Output Total 1050 / 1350 300 / 1350 Balance 840.5 / 790.5 -50 / 790.5 Intake: IV 50.5 / 50.5 Phenergan 12.5 mg In Nss 50 ml 50.5 / 50.5 @ 204 mls/hr IV Q6H PRN Rx#: [id number] IV Perioperative 1750 / 1750 Oral 90 / 340 250 / 340 Output: Urine 200 / 500 300 / 500 Emesis 200 / 200 Estimated Blood Loss 50 / 50 Urine Amount (Catheter) 600 / 600 James/Indwelling 600 / 600 Lab Results 03/11/19 03/11/19 03/11/19 Range/Units 13:20 13:20 13:41 WBC 4.74 L (4.8-10.8) K/uL RBC 4.37 (4.2-5.4) M/uL Hgb 13.6 (12.0-16.0) g/dL Hct 40.8 (37-47) % MCV 93.4 (80-100) fL MCH 31.1 (25-34) pg MCHC 33.3 (32-36) g/dL RDW Std Deviation 42.7 (36.4-46.3) fL RDW Coeff of Chet 12.6 (11.5-14.5) % Plt Count 182 (130-400) K/uL MPV 11.3 H (7.4-10.4) fL Immature Gran % (Auto) 0.2 % Neut % (Auto) 57.2 % Lymph % (Auto) 29.3 % [place] % (Auto) 8.9 % Eos % (Auto) 4.2 % Baso % (Auto) 0.2 % Immature Gran # (Auto) 0.01 (0.00-0.02) K/uL Neut # (Auto) 2.71 (1.4-6.5) K/uL Lymph # (Auto) 1.39 (1.2-3.4) K/uL [place] # (Auto) 0.42 (0.11-0.59) K/uL Eos # (Auto) 0.20 (0-0.5) K/uL Baso # (Auto) 0.01 (0-0.2) K/uL Sodium 142 (136-145) mmol/L Potassium 4.3 (3.5-5.1) mmol/L Chloride 112 H (98-107) mmol/L Carbon Dioxide 25 (21-32) mmol/L Anion Gap 6.0 (3-11) BUN 16 (7-18) mg/dl Creatinine 0.67 (0.6-1.2) mg/dl Est Cr Clr Drug Dosing 110.3 ml/min Est GFR ( Amer) 107.7 Est GFR (Non-Af Amer) 92.9 BUN/Creatinine Ratio 23.1 H (10-20) Glucose 95 (70-99) mg/dl Calcium 9.0 (8.5-10.1) mg/dl Blood Type A Positive Antibody Screen NEGATIVE 03/26/19 Range/Units 04:47 WBC 9.88 (4.8-10.8) K/uL RBC 4.00 L (4.2-5.4) M/uL Hgb 12.4 (12.0-16.0) g/dL Hct 36.8 L (37-47) % MCV 92.0 (80-100) fL MCH 31.0 (25-34) pg MCHC 33.7 (32-36) g/dL RDW Std Deviation 43.1 (36.4-46.3) fL RDW Coeff of Chet 12.7 (11.5-14.5) % Plt Count 168 (130-400) K/uL MPV 11.5 H (7.4-10.4) fL Immature Gran % (Auto) % Neut % (Auto) % Lymph % (Auto) % [place] % (Auto) % Eos % (Auto) % Baso % (Auto) % Immature Gran # (Auto) (0.00-0.02) K/uL Neut # (Auto) (1.4-6.5) K/uL Lymph # (Auto) (1.2-3.4) K/uL [place] # (Auto) (0.11-0.59) K/uL Eos # (Auto) (0-0.5) K/uL Baso # (Auto) (0-0.2) K/uL Sodium (136-145) mmol/L Potassium (3.5-5.1) mmol/L Chloride (98-107) mmol/L Carbon Dioxide (21-32) mmol/L Anion Gap (3-11) BUN (7-18) mg/dl Creatinine (0.6-1.2) mg/dl Est Cr Clr Drug Dosing ml/min Est GFR ( Amer) Est GFR (Non-Af Amer) BUN/Creatinine Ratio (10-20) Glucose (70-99) mg/dl Calcium (8.5-10.1) mg/dl Blood Type Antibody Screen PE: General: Alert, orientedx3, NAD CVS: S1S2 RRR Lungs; CTAB Abd: soft, NT, ND, BS+, incisions C/D/I Incision: Clean, dry, intact Ext; NT, no edema AP: 63 yo s/p TLH, BSO, pod# 1 VSS Afebrile doing well WBCC is normal Discussed with Dr Driscoll who is okay to d/c today before passing gas Encourage ambulation, PO intake All questions were answered D/C home , f/u in office Results & Data Vital Signs (Past 12 Hours) Vital Signs Temp Pulse Pulse Pulse Resp BP BP 03/26/19 07:25 37.5 C 87 18 126/69 03/26/19 04:00 37.8 C H 101 H 99 H 18 91/41 L 118/70 03/26/19 02:00 37.6 C H 03/26/19 00:50 37.8 C H 93 H 18 133/71 03/25/19 23:30 03/25/19 21:55 37.3 C 94 H 18 149/74 H Pulse Ox Pulse Ox 03/26/19 07:25 94 94 03/26/19 04:00 95 03/26/19 02:00 03/26/19 00:50 93 03/25/19 23:30 93 03/25/19 21:55 91
== END 2019-03-26 10:20 | disposition home or self-care (01) ==
LOC: ASU 11:19 → 4N 18:02 → INTOOBSV 18:02